=== PATIENT | female | born 1950 | race Caucasian/White ===

== ENCOUNTER 2016-11-07 10:13 | Outpatient (CLI) | payer OTHER ==
--- NOTE | 2016-11-08 14:05 | Mammography Report ---
DIGITAL SCREENING MAMMOGRAM: 11/07/2016 COMPARISON: 08/21/2014, 07/17/2013, 07/17/2012, 06/29/2011, 06/29/2010, 06/29/2009, 06/24/2008, 05/22. TECHNIQUE: Bilateral digital CC, MLO, and exaggerated CC views. FINDINGS: The breast tissue is heterogeneously dense. Bilateral vascular calcifications are present . No dominant mass, architectural distortion, skin thickening, suspicious microcalcifications, or in terval change. IMPRESSION: NEGATIVE. BI-RADS 1. SUGGEST ROUTINE FOLLOWUP IN 12 MONTHS. STANDARD QUALIFYING STATEMENTS 1. This examination was reviewed with the aid of Computer-Aided Detection (CAD). 2. A negative or benign imaging report should not delay biopsy if clinically suspicious findings are present. Consider surgical consultation if warranted. More than 5% of cancers are not identified by i maging. 3. Dense breasts may obscure an underlying neoplasm. JOB #: [id number] EXT JOB #:[id number]
== END 2016-11-07 10:14 | disposition home or self-care (01) ==
LOC: DI.N 10:13
PROVIDERS: ATTEND Registered Nurse
DX: Z12.31 Encounter for screening mammogram for malignant neoplasm of breast (principal)
CPT/HCPCS: 77067